=== PATIENT | female | born 1995 | race Two or more races ===

== ENCOUNTER 2023-07-01 19:31 | Emergency (ER) | payer OTHER ==
[2023-07-01 19:58] VITALS: BP 135/79; PULSE 83; RESP 18; TEMP 98.4; BMI 26.6
[2023-07-01] MEDS ORDERED: AZITHROMYCIN 250 MG TABLET PO ONE (21:02)
[2023-07-01] MEDS ORDERED: AZITHROMYCIN 500 MG TABLET ONE (21:08)
== END 2023-07-01 21:54 | disposition home or self-care (01) ==
LOC: JER 19:31 → JERFT 19:31
DX: J02.0 Streptococcal pharyngitis (principal); R05.9 Cough, unspecified; R09.81 Nasal congestion; R13.10 Dysphagia, unspecified; Z20.822 Contact with and (suspected) exposure to COVID-19
CPT/HCPCS: 0241U-QW; 87651; 99283-25

== ENCOUNTER 2023-11-21 23:31 | Emergency (ER) | payer OTHER ==
[2023-11-21 23:35] VITALS: BP 121/77; PULSE 90; RESP 18; TEMP 98.2; BMI 25.0
[2023-11-22 00:43] LABS: BASO % 1.1 % (0-2.0); EOS % 1.2 % (0-4.5); HEMATOCRIT 36.7 % (32.4-45.2); HEMOGLOBIN 13.3 GM/dL (10.7-15.3); LYMPH % 36.9 % (8-40); MCH 31.3 pg (25.7-33.7); MCHC 36.1 g/dl (32.0-36.0); MEAN CELL VOLUME 86.7 fl (80-96); MONO % 5.6 % (3.8-10.2); NEUT % 55.2 % (42.8-82.8); PLATELET COUNT 285 10^3/uL (134-434); RBC 4.24 M/mm3 (3.60-5.2); RDW 12.6 % (11.6-15.6); WHITE BLOOD COUNT 8.7 K/mm3 (4.0-10.0)
[2023-11-22 01:03] LABS: CHLORIDE 110 mmol/L (98-107); POTASSIUM 4.1 mmol/L (3.5-5.1); SODIUM 140 mmol/L (136-145)
[2023-11-22 01:05] LABS: CALCIUM 9.1 mg/dL (8.5-10.1)
[2023-11-22 01:06] LABS: ANION GAP 5 mmol/L (4-13); BLOOD UREA NITROGEN 15.7 mg/dL (7-18); CO2 26 mmol/L (21-32); GLUCOSE,RANDOM 100 mg/dL (74-106)
[2023-11-22 01:09] LABS: CREATININE 0.8 mg/dL (0.55-1.3); SGOT/AST 13 U/L (15-37); SGPT/ALT 29 U/L (13-61)
[2023-11-22 01:11] LABS: BILIRUBIN,TOTAL 0.2 mg/dL (0.2-1); TOT PROT 8.2 g/dl (6.4-8.2)
[2023-11-22 01:12] LABS: ALK PHOS 87 U/L (45-117)
[2023-11-22 01:18] LABS: URINE APPEARANCE CLEAR; URINE BILIRUBIN NEGATIVE (NEGATIVE); URINE COLOR YELLOW; URINE GLUCOSE (UA) NEGATIVE (NEGATIVE); URINE KETONE TRACE (NEGATIVE); URINE LEUK ESTERASE NEGATIVE (NEGATIVE); URINE NITRITE NEGATIVE (NEGATIVE); URINE PROTEIN NEGATIVE (NEGATIVE)
[2023-11-22] MEDS ORDERED: FLUCONAZOLE 150 MG TABLET PO ONE (01:55)
[2023-11-22] MEDS: FLUCONAZOLE 150 MG TABLET PO ONE (01:55)
== END 2023-11-22 03:25 | disposition left against medical advice (07) ==
LOC: JER 23:31 → JERFT 23:31 → JER 11-22 03:25
DX: R10.31 Right lower quadrant pain (principal); B37.31 Acute candidiasis of vulva and vagina
CPT/HCPCS: 36415; 76830-TC; 80053; 81003; 84703; 85025; 86140; 87086; 87491; 87591; 99284-25

== ENCOUNTER 2023-12-11 16:20 | Emergency (ER) | payer OTHER ==
[2023-12-11 16:28] VITALS: BP 121/82; PULSE 67; RESP 20; TEMP 97.8; BMI 24.8
[2023-12-11] MEDS ORDERED: ACETAMINOPHEN 500 MG TABLET (FP) ONE (16:57)
[2023-12-11] MEDS: ACETAMINOPHEN 500 MG TABLET (FP) PO ONE (16:58)
[2023-12-12 01:17] LABS: THROAT:GRP A STREP NOT DETECTED (NOTDETECTED)
== END 2023-12-11 18:28 | disposition home or self-care (01) ==
LOC: JERFT 16:20
DX: R05.9 Cough, unspecified (principal); J02.9 Acute pharyngitis, unspecified; J35.8 Other chronic diseases of tonsils and adenoids; Z20.822 Contact with and (suspected) exposure to COVID-19
CPT/HCPCS: 0241U-QW; 87651; 99283-25